=== PATIENT | male | born 1995 | race Caucasian/White ===

== ENCOUNTER 2016-06-27 23:18 | Emergency (ER) | payer BC, OTHER ==
[2016-06-27 23:19] VITALS: BP 126/83
[2016-06-27] MEDS ORDERED: ZOFRAN INJ 4 MG VIAL IVP ONE (23:28)
[2016-06-27] MEDS ORDERED: DILAUDID IVP ONE (23:28)
[2016-06-27 23:29] VITALS: BMI 4100.8
[2016-06-27] MEDS ORDERED: PHENERGAN INJ 25 MG IV ONE (23:29)
[2016-06-27] MEDS ORDERED: DILAUDID ONE (23:30)
[2016-06-27] MEDS ORDERED: ZOFRAN INJ 4 MG VIAL ONE (23:30)
[2016-06-27] MEDS ORDERED: PHENERGAN INJ 25 MG ONE (23:30)
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
[2016-06-27] MEDS ORDERED: NS 1000 ML 1,000 ML IV SCH (23:45)
--- NOTE | 2016-06-28 00:15 | RAD ---
EXAM: Left forearm x-ray INDICATION: Laceration COMPARISION: No priors for comparison TECHNIQUE: AP, lateral, 2 views FINDINGS: There is a soft tissue laceration along the mid anterior medial aspect of the forearm. No acute frac ture or dislocation. The joint spaces are preserved. No radiopaque foreign body. IMPRESSION: Soft tissue laceration seen along the anterior medial aspect of the mid forearm. Reported By:
[2016-06-28] MEDS ORDERED: NORCO 7.5/325 MG TAB PO ONE (00:39)
[2016-06-28] MEDS ORDERED: NORCO 7.5/325 MG TAB ONE (00:42)
== END 2016-06-28 00:47 | disposition home or self-care (01) ==
LOC: ER 23:18
PROC: 0XQ90ZZ Repair Left Upper Arm, Open Approach (ICD-10-PCS; principal; 2016-06-27)
DX: S51.812A Laceration without foreign body of left forearm, initial encounter (principal); W34.00XA Accidental discharge from unspecified firearms or gun, initial encounter; Y92.9 Unspecified place or not applicable
CPT/HCPCS: 12002; 73090; 96365; 96374; 96375; 99283; A4222; J2405; J2550

== ENCOUNTER 2016-07-06 00:43 | Emergency (ER) | payer SELFPAY ==
[2016-07-06 00:50] VITALS: BP 145/98; BMI 29.2
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
[2016-07-06] MEDS ORDERED: DECADRON INJ IV ONE (01:14)
[2016-07-06] MEDS ORDERED: TORADOL 30 MG VIAL IVP ONE (01:14)
[2016-07-06] MEDS ORDERED: ROCEPHIN VIAL 1 GM 1 GM in NS 50 ML IV + SPIKE MINIBAG* 50 ML IV ONE (01:14)
[2016-07-06] MEDS ORDERED: BACTRIM DS TAB PO ONE ×2 (01:17→01:41)
[2016-07-06] MEDS ORDERED: DECADRON INJ ONE (01:41)
[2016-07-06] MEDS ORDERED: TORADOL 30 MG VIAL ONE (01:41)
[2016-07-06] MEDS ORDERED: ROCEPHIN VIAL 1 GM ONE (01:42)
[2016-07-06] MEDS ORDERED: NS 50 ML IV + SPIKE MINIBAG* 50 ML IV ONE (01:42)
[2016-07-06 01:47] LABS: BASOPHILS % (AUTO) 0.8 % (0.2-1.0); EOSINOPHILS # (AUTO) 0.1 x10^3/uL (0.0-0.2); EOSINOPHILS % (AUTO) 1.6 % (0.9-2.9); HEMATOCRIT 48.6 % (42.0-54.0); HEMOGLOBIN 15.9 g/dL (13.5-18.0); LYMPHOCYTES # (AUTO) 2.8 X10^3/uL (1.3-2.9); LYMPHOCYTES % (AUTO) 43.5 % (21.0-51.0); MEAN CORPUSCULAR HGB CONC 32.6 g/dL (33.0-35.0); MEAN CORPUSCULAR VOLUME 82.8 fL (80.0-100.0); MEAN PLATELET VOLUME 8.5 fL (7.4-11.0); MONOCYTES # (AUTO) 0.7 x10^3/uL (0.3-0.8); MONOCYTES % (AUTO) 10.6 % (0.0-13.0); NEUTROPHILS # (AUTO) 2.8 x10^3/uL (2.2-4.8); NEUTROPHILS % (AUTO) 43.5 % (42.0-75.0); PLATELET COUNT 187 X10^3/uL (150.0-450.0); RED BLOOD COUNT 5.87 X10^6/uL (4.7-6.0); RED CELL DISTRIBUTION WIDTH 13.4 % (11.6-16.5); WHITE BLOOD COUNT 6.5 X10^3/uL (3.6-10.0)
[2016-07-06] MEDS ORDERED: ULTRAM PO ONE (02:41)
[2016-07-06] MEDS ORDERED: ULTRAM ONE (02:42)
== END 2016-07-06 02:52 | disposition home or self-care (01) ==
LOC: ER 00:43
DX: H60.313 Diffuse otitis externa, bilateral (principal); H66.003 Acute suppurative otitis media without spontaneous rupture of ear drum, bilateral
CPT/HCPCS: 36415; 85025; 96365; 96374; 96375; 99283; A4222; J0696; J1100; J1885

== ENCOUNTER 2016-10-01 04:29 | Emergency (ER) | payer SELFPAY ==
[2016-10-01 04:35] VITALS: BP 123/70; BMI 286.1
--- NOTE | 2016-10-01 04:42 | DR.GENAD ---
HPI - PCP Primary Care Physician: NFD - Complaint/Symptoms Chief Complaint:: "I was playing around and hit some glass with my hand" - Nurses notes reviewed Nurses Notes Review: Yes - Source History Provided: Patient - Mode of Arrival Mode of Arrival: Ambulatory - Timing Onset of Chief Complaint: 10/01/16 Came on: Suddenly - Duration Duration: Constant Duration: Minutes - Location Location: right hand - Severity Severity: Moderate - Modifying Factors Worsens:: movement - Associated Signs and Symptoms Associated Signs and Symptoms: pain PMH - PMH Past Medical History: No Past Surgical History: Yes Surgical History: Appendectomy - Family History History of Family Medical Conditions: No - Social History Does patient currently use any type of tobacco product: Yes Have you used tobacco products in the last 12 months: Yes Type of Tobacco Use: Cigarettes Does any household member use tobacco: Yes Alcohol Use: Occasionally Do you use any recreational Drugs:: No Lives With: Family Lives Where: Home - infectious screening In the last 2 months have you had wt loss of >10#?: NO Have you had fever, night sweats or hemotysis?: No Have you traveled outside the country in the last 6 months?: No Isolation: Standard ROS - Review of Systems Constitutional: No Symptoms Reported Eyes: No Symptoms Reported ENTM: No Symptoms Reported Respiratoy: No Symptoms Reported Cardiovascular: No Symptoms Reported Gastrointestinal/Abdominal: No Symptoms Reported Genitourinary: No Symptoms Reported Neurological: No Symptoms Reported Musculoskeletal: Hand (right hand pain) Integumentary: Wound (#4 digit right hand with missing skin and pale) PE - Vital Signs Vitals: Temperature 98.5 F Pulse Rate 97 Respiratory Rate 20 Blood Pressure 123/70 O2 Sat by Pulse Oximetry 95 - General Limitations: No Limitations General Appearance: Alert, In No Apparent Distress - Head Head Exam: Normal Inspection - Eyes Eye exam: EOMI. negative: Scleral Icterus, Conjunctival Injection - ENT ENT Exam: Normal Exam External Ear Exam: Normal External Inspection Nose Exam: Normal Nose Exam Mouth Exam: Normal Inspection - Neck Neck Exam: Normal Inspection, Full ROM, Trachea Midline - Respiratory Respiratory Exam: negative: Accessory Muscle Use, Respiratory Distress - Neurologic Neurological Exam: Alert, Oriented X3, CN II-XII Intact - Psychiatric Psychiatric Exam: Agitated - Skin Skin Exam: Other (PRACTICING MD ANESTHESIOLOGIST 1 sec, decreased ROM, from pain or possible tendon injury. ). negative: Intact (right hand 4th digit with skin missing ), Normal Color ( pale) Course - Treatment Treatment: Told to follow up hand surgeon or orthopedics 3 days or less. ROR - XRAY XRAY Interpreted by: Radiologist XRAY Findings: hand: no fx, possible tiny foreign body - Diagnosis Discharge Problem: Laceration - Discharge Plan Condition: Stable Prescriptions: Cephalexin [Keflex] 250 mg PO Q8H #30 cap Tramadol HCl [ULTRAM 50 MG *] 50 mg PO Q8H PRN #15 tab PRN Reason: Pain - Follow ups/Referrals Follow ups/Referrals: NFD,None [Primary Care Provider] - 3 days MARY BETH RYAN [CONSULTING PHYSICIAN] - 3 days - Instructions Instructions: Laceration Care, Adult, [id number]
--- NOTE | 2016-10-01 05:06 | RAD ---
Three views of the right hand Indication: Hand pain post trauma concern for containing glass Findings: There is a tiny radiopaque density within the ulnar aspect of the middle finger at the lev el of the proximal phalangeal head only seen on 1 projection, potentially representing retained radi opaque foreign body/glass and clinical correlation is needed. The remaining right hand demonstrates no other osseous or soft tissue abnormality. Radiocarpal joint alignment is maintained. Impression: See above. Reported By:
[2016-10-01] MEDS ORDERED: XYLOCAINE VISCOUS ONE (05:09)
[2016-10-01] MEDS ORDERED: NEOSPORIN OINT ONE (05:09)
[2016-10-01] MEDS ORDERED: KEFLEX CAP 500 MG PO ONE ×2 (05:11→05:24)
[2016-10-01] MEDS ORDERED: ULTRAM ONE (05:25)
[2016-10-01] MEDS: ULTRAM PO ONE ×2 (05:30→05:34)
[2016-10-01] MEDS ORDERED: INDOCIN CAP 25 MG PO ONE ×2 (05:33→05:35)
== END 2016-10-01 05:38 | disposition home or self-care (01) | DRG 914 ==
LOC: ER 04:29
DX: S61.421A Laceration with foreign body of right hand, initial encounter (principal); X58.XXXA Exposure to other specified factors, initial encounter; Y93.83 Activity, rough housing and horseplay; Y92.89 Other specified places as the place of occurrence of the external cause
CPT/HCPCS: 73130; 99282